=== PATIENT | female | born 1965 | race Caucasian/White ===

== ENCOUNTER → 2018-07-07 | Day surgery (SDC) | payer OTHER | END | disposition home or self-care (01) | LOC: FRADUS-SUR 10:05 → FRAD 10:05 → EDSTATUS 10:30 | PROVIDERS: ATTEND Surgery Surgical Oncology | PROC: 0HBT3ZX Excision of Right Breast, Percutaneous Approach, Diagnostic (ICD-10-PCS; principal; 2018-07-07) | DX: Z53.8 Procedure and treatment not carried out for other reasons (principal); N64.89 Other specified disorders of breast | CPT/HCPCS: 19083; 76642-TC-RT ==

== ENCOUNTER → 2021-09-16 | Day surgery (SDC) | payer OTHER | END | disposition home or self-care (01) | LOC: JRADUS-SUR 12:15 → EDSTATUS 12:15 | PROVIDERS: ATTEND Surgery Surgical Oncology | PROC: 0HBT3ZX Excision of Right Breast, Percutaneous Approach, Diagnostic (ICD-10-PCS; principal; 2021-09-16) | DX: C50.211 Malignant neoplasm of upper-inner quadrant of right female breast (principal); Z17.0 Estrogen receptor positive status [ER+]; N63.12 Unspecified lump in the right breast, upper inner quadrant | CPT/HCPCS: 19083; 77065-TC; 87899; A4648 ==